=== PATIENT | female | born 1990 | race Caucasian/White ===

== ENCOUNTER 2016-04-16 17:20 | Outpatient (CLI) | payer SELFPAY ==
[~2016-04-16] VITALS: Ht 157.5 cm; Wt 60.0 kg
[~2016-04-16 17:20] MED LIST: FERR27TA; PREN1TAB49
[2016-04-16 17:27] VITALS: Ht 157.5 cm; Wt 60.0 kg
[2016-04-16 17:28] VITALS: BP 111/68; PULSE 93; RESP 16
--- NOTE | 2016-04-16 18:06 | RADRPT ---
PROCEDURE: US OB CLINICAL INDICATION: r/o iugr TECHNIQUE: Multiple sonographic images of the pelvis were obtained. The images were reviewed on a PACS workstation. COMPARISON: None FINDINGS: The cervix is not well visualized. There is a single viable intrauterine gestation. Cardiac activity is present with 154 beats per minute. There is a vertex presentation. The placenta is anterior. There is no evidence for an abruption or placenta previa. There is a subjectively normal amount of amniotic fluid. Measurements were made in order to determine age. The results are as follows (cm): BPD =8.33 HC =30.00 AC =28.57 FL =6.25 Estimated gestational age by ultrasound of approximately 33 weeks, 0 days. The estimated date of delivery by ultrasound is 06/04/2016. Reported gestational age by LMP of approximately 32 weeks, 1 day. The reported date of delivery by LMP is 06/10/2016. EFW = 2024 grams (56th percentile) IMPRESSION: Single viable intrauterine gestation of approximately 33 weeks, 0 days . The estimated date of delivery is 06/04/2016 . Dating by ultrasound is within 6 days of dating by LMP. Estimated weight in the 56th percentile. RPTAT: EE Physician Angélica Date Time Electronically viewed and signed by Physician Angélica on 04/16/2016 18:06 /
--- NOTE | 2016-04-16 18:14 | RADRPT ---
PROCEDURE: US OB biophysical profile. CLINICAL INDICATION: evaluation, rule out intrauterine growth retardation TECHNIQUE: Multiple sonographic images of the pelvis were obtained. The images were reviewed on a PACS workstation. COMPARISON: No prior studies are available for comparison. FINDINGS: There is a single viable intrauterine gestation. Cardiac activity is present with 57 beats per fermin te. There is a vertex presentation. The placenta is anterior. There is no evidence of placental abruption. There is a normal amount of amniotic fluid with an MAU = 12.5 cm. Biophysical profile: movement 2/2 tone 2/2. breathing 2/2 MAU 2/2 Total 10/28 RPTAT: AA . IMPRESSION: Normal biophysical profile. Physician Angélica Date Time Electronically viewed and signed by Physician Angélica on 04/16/2016 18:14 /
--- NOTE | 2016-06-16 13:16 | QN ---
Documentation Comment 33 weeks suspected IUGR patient underwent an ultrasound and biophysical evaluate biophysical patient discharged home to the care of the clinic recommended to repeat ultrasound in 2 week follow-up for IUGR. ARMINDA CLIFTON MD Jun 16, 2016 13:16
== END 2016-04-16 18:59 | disposition home or self-care (01) ==
LOC: L-D 17:20 → OBT 17:20
PROVIDERS: ATTEND Obstetrics & Gynecology
DX: O36.5930 Maternal care for other known or suspected poor fetal growth, third trimester, not applicable or unspecified (principal); Z3A.33 33 weeks gestation of pregnancy
CPT/HCPCS: 76815; 76818; G0463

== ENCOUNTER 2016-04-20 14:12 | Outpatient (CLI) | payer SELFPAY ==
--- NOTE | 2016-04-16 20:00 | QN ---
Documentation Comment 25 years old with IUP at 32 weeks and 3/7 days with care at [facility] was sent for NST and BPP due to concern for IUGR. she was told that she measures about 27 weeks. Denies any vaginal bleeding, uterine contractions or leaking of fluid or decreased movement. Patient denies any complaints. Physical examination: GA: NAD, A&O Abdomen: Soft, nontender nondistended, gravid. NST: Category 1 tracing. No contractions on the monitor seen. Extremities: No calf tenderness no click no edema. EGA: By ultrasound 33 weeks. No evidence of previa no evidence of abruption EFW: 56 percentile BPP: 10/28. MAU: Within normal limits. 12.5 cm PROCEDURE: US OB CLINICAL INDICATION: r/o iugr TECHNIQUE: Multiple sonographic images of the pelvis were obtained. The images were reviewed on a PACS workstation. COMPARISON: None FINDINGS: The cervix is not well visualized. There is a single viable intrauterine gestation. Cardiac activity is present with 154 beats per minute. There is a vertex presentation. The placenta is anterior. There is no evidence for an abruption or placenta previa. There is a subjectively normal amount of amniotic fluid. Measurements were made in order to determine age. The results are as follows (cm): BPD = 8.33 HC = 30.00 AC = 28.57 FL = 6.25 Estimated gestational age by ultrasound of approximately 33 weeks, 0 days. The estimated date of delivery by ultrasound is 06/04/2016. Reported gestational age by LMP of approximately 32 weeks, 1 day. The reported date of delivery by LMP is 06/10/2016. EFW = 2024 grams (56th percentile) IMPRESSION: Single viable intrauterine gestation of approximately 33 weeks, 0 days . The estimated date of delivery is 06/04/2016 . Dating by ultrasound is within 6 days of dating by LMP. Estimated weight in the 56th percentile. Assessment: 25-year-old with IUP at 32 weeks and 3 days by her EDC which is currently consistent with ultrasound today at this facility. EGA : 56 percentile. EFW: 2024 g. testing both reassuring. No evidence of rupture of membranes or labor. Ultrasound finding discussed with the patient in detail. Patient was recommended to have testing twice a week until she have follow-up with her own OB clinic. Patient reports history of SGA in her prior . DC home. Strict labor precautions and kick count discussed with the patient. Rt triage on Thursday for NST BPP. To keep her follow-up appointment next week with no systolic clinic. JOVAN NUNES MD Apr 16, 2016 20:00
[~2016-04-20] VITALS: Ht 157.5 cm; Wt 61.0 kg
[2016-04-20 14:37] VITALS: Ht 157.5 cm; Wt 61.0 kg
[2016-04-20 14:38] VITALS: BP 100/60; PULSE 104; RESP 20
[2016-04-20 14:59] LABS: ADD UMIC YES; URINE BILIRUBIN (Dip) NEGATIVE (NEGATIVE); URINE BLOOD (Dip) NEGATIVE (NEGATIVE); URINE COLOR LT. YELLOW (YELLOW); URINE GLUCOSE (Dip) NEGATIVE (NEGATIVE); URINE KETONES (Dip) TRACE (NEGATIVE); URINE LEUKOCYTE ESTERASE (Dip) 2+ (NEGATIVE); URINE NITRITE (Dip) NEGATIVE (NEGATIVE); URINE TOTAL PROTEIN (Dip) NEGATIVE (NEGATIVE); URINE UROBILINOGEN (Dip) 0.2 E.U./dL (0.1-1.0)
[2016-04-20] MEDS ORDERED: TERBUTALINE 1 ML ONE (15:20)
[2016-04-20] MEDS ORDERED: LACTATED RINGER'S 1,000 ML IV SCH (15:30)
[2016-04-20] MEDS ORDERED: TERBUTALINE 1 MG/ML INJ SC ONE (15:30)
[2016-04-20] MEDS ORDERED: BETAMET NA PHOS/AC(6 MG/ML) 5ML INJ IM ONE (15:30)
[2016-04-20 15:46] LABS: BACTERIA,URINE MANY; SQUAMOUS EPITHELIAL CELL,UR MANY; URINE RBCS 0-2 /HPF (0)
--- NOTE | 2016-04-20 15:51 | RADRPT ---
PROCEDURE: US OB biophysical profile. CLINICAL INDICATION: evaluation TECHNIQUE: Multiple sonographic images of the pelvis were obtained. The images were reviewed on a PACS workstation. COMPARISON: Obstetrical ultrasound from 04/16/2016 FINDINGS: The cervix is closed and measures 2.9 cm in length. There is a single viable intrauterine gestation. Cardiac activity is present with 136 beats per min gracie. There is a vertex presentation. The placenta is anterior. There is no evidence of placental abruption. There is a normal amount of amniotic fluid with an MAU = 13.2 cm. Biophysical profile: movement 2/2 tone 2/2. breathing 2/2 MAU 2/2 Total 10/28 RPTAT: AA . IMPRESSION: Normal biophysical profile. Normal MAU. The cervix is closed and measures 2.9 cm in length. Physician Angélica Date Time Electronically viewed and signed by Physician Angélica on 04/20/2016 15:50 /
[2016-04-20] MEDS ORDERED: CEFAZOLIN 2 GM/50 ML (PMX) 50 ML IVPB ONE ×2 (16:00→16:04)
[2016-04-20] MEDS ORDERED: ACETAMINOPHEN 1000MG/100ML IV 100 ML IVPB ONE (18:00)
[2016-04-20] MEDS ORDERED: BUTORPHANOL 2 MG INJ IV ONE (18:30)
[2016-04-20] MEDS ORDERED: BUTORPHANOL 2 MG INJ ONE (18:32)
--- NOTE | 2016-04-20 22:18 | TRIAGE ---
OB Triage Datetime Report Generated by CPN: 04/20/2016 22:18 Datetime: 04/20/2016 18:43 DTR's/Clonus: DTRs 2+ Headache: Denies Blurred Vision: No Nausea/Vomiting: Denies RUQ Epigastric Pain: Denies Facial Edema: None Labor Evaluation Frequency: none at this time Monitor Mode: External Pattern: Normal: <= 5 Contractions in 10 Minutes Resting Tone [place]: Relaxed Heart Rate FHR Baseline Rate: 155 Monitor Mode: External US FHR Baseline Changes: No Baseline Change Variability: Moderate 6-25 bpm Accelerations: 15X15 Decelerations: None Category: Category I Pain Assessment Pain Scale: 0 Pain Presence: None/Denies Pain Goal: 3 Pain Assessment Comments: pt sleeping no complaints offerred Datetime: 04/20/2016 18:05 Maternal Assessment Level of Consciousness: Fully Conscious DTR's/Clonus: DTRs 2+ Headache: Denies Blurred Vision: No Nausea/Vomiting: Denies RUQ Epigastric Pain: Denies Facial Edema: None Labor Evaluation Frequency: 4-8 Monitor Mode: External Duration (sec)2399: 60 Quality: Moderate Pattern: Normal: <= 5 Contractions in 10 Minutes Resting Tone [place]: Relaxed Pain Assessment Pain Scale: 6 Pain Presence: Intermittent Pain Type: Contraction Pain Location: Abdomen Pain Goal: 6 Datetime: 04/20/2016 18:04 Heart Rate FHR Baseline Rate: 170 Monitor Mode: External US FHR Baseline Changes: Tachycardia Variability: Moderate 6-25 bpm Accelerations: 15X15 Decelerations: None Category: Category I Datetime: 04/20/2016 17:14 Maternal Assessment Level of Consciousness: Fully Conscious DTR's/Clonus: DTRs 2+ Headache: Denies Blurred Vision: No Nausea/Vomiting: Denies RUQ Epigastric Pain: Denies Facial Edema: None Labor Evaluation Frequency: irreg Monitor Mode: External Duration (sec)2399: 50-60 Quality: Moderate Pattern: Normal: <= 5 Contractions in 10 Minutes Resting Tone [place]: Relaxed Heart Rate FHR Baseline Rate: 160 Monitor Mode: External US FHR Baseline Changes: No Baseline Change Variability: Moderate 6-25 bpm Accelerations: 15X15 Decelerations: None Category: Category I Pain Assessment Pain Scale: 6 Pain Presence: Intermittent Pain Type: Contraction Pain Location: Abdomen Pain Goal: 6 Vaginal Exam Membrane Status: Intact Datetime: 04/20/2016 16:15 Maternal Assessment Level of Consciousness: Fully Conscious DTR's/Clonus: DTRs 2+ Headache: Denies Blurred Vision: No Nausea/Vomiting: Denies RUQ Epigastric Pain: Denies Facial Edema: None Labor Evaluation Frequency: irreg Monitor Mode: External Duration (sec)2399: 60 Quality: Moderate Pattern: Normal: <= 5 Contractions in 10 Minutes Resting Tone [place]: Relaxed Heart Rate FHR Baseline Rate: 156 Monitor Mode: External US FHR Baseline Changes: No Baseline Change Variability: Moderate 6-25 bpm Accelerations: 15X15 Decelerations: None Category: Category I Pain Assessment Pain Scale: 6 Pain Presence: Intermittent Pain Type: Contraction Pain Location: Abdomen Pain Goal: 6 Vaginal Exam Membrane Status: Intact Datetime: 04/20/2016 15:08 Labor Evaluation Frequency: 3-4 Monitor Mode: External Duration (sec)2399: 60 Quality: Moderate Pattern: Normal: <= 5 Contractions in 10 Minutes Resting Tone [place]: Relaxed Heart Rate FHR Baseline Rate: 150 Monitor Mode: External US FHR Baseline Changes: No Baseline Change Variability: Moderate 6-25 bpm Accelerations: 15X15 Decelerations: None Category: Category I Pain Assessment Pain Scale: 7 Pain Presence: Intermittent Pain Type: Contraction Pain Location: Abdomen Pain Goal: 7 Vaginal Exam Membrane Status: Intact Datetime: 04/20/2016 14:31 Time of Arrival: 04/20/2016 14:05 EGA: 33.0 Arrived By: Ambulatory Arrived From: Home Chief Complaint: F/U IUGR Movement: Present Contractions: Denies/Absent Rupture of Membranes: Denies Vaginal Bleeding: None Vaginal Discharge: Denies Recent Sexual Intercouse: Denies Abdominal Trauma: Not Applicable Patient Complaints: Other Time Provider Notified: 04/20/2016 14:32 Provider Notified: DR CLIFTON Initial Plan: EFM,NST/BPP Labor Evaluation Frequency: 1-2 Monitor Mode: Internal Duration (sec)2399: 20-30 Quality: Mild Pattern: Normal: <= 5 Contractions in 10 Minutes Resting Tone [place]: Relaxed Datetime: 04/20/2016 14:30 Maternal Assessment Level of Consciousness: Fully Conscious Maternal Assessment Level of Consciousness: Fully Conscious DTR's/Clonus: DTRs 2+ DTR's/Clonus: DTRs 2+; No Clonus Headache: Denies Headache: Denies Blurred Vision: No Blurred Vision: No Respiratory Effort: Unlabored; Regular Rhythm; Equal Expansion Breath Sounds, Left: Clear and Equal Breath Sounds, Right: Clear and Equal Nausea/Vomiting: Denies RUQ Epigastric Pain: Denies RUQ Epigastric Pain: Denies Facial Edema: None Facial Edema: None Temperature Route: Axillary Fall Risk Assessment History of Falling: (0) No Secondary Diagnosis: (0) No Ambulatory Aid: (0) Bedrest/Nurse Assist IV Therapy: (0) No Gait: (0) Normal/Bedrest/Immobile Mental Status: (0) Oriented to Own Ability Fall Score: 0 Fall Risk Score Definition: No Risk: No action required Pattern: Normal: <= 5 Contractions in 10 Minutes Heart Rate FHR Baseline Rate: 150 Monitor Mode: External US FHR Baseline Changes: No Baseline Change Variability: Moderate 6-25 bpm Decelerations: None Category: Category I Pain Assessment Pain Scale: 7 Pain Presence: Constant Pain Type: Pressure Pain Location: Abdomen Pain Goal: 7 Vaginal Exam Membrane Status: Intact Datetime: 04/16/2016 18:33 Pattern: Normal: <= 5 Contractions in 10 Minutes Resting Tone [place]: Relaxed Contraction Comments: no uc Heart Rate FHR Baseline Rate: 135 Monitor Mode: External US Variability: Moderate 6-25 bpm Accelerations: 15X15 Decelerations: None Category: Category I Pain Presence: None/Denies Pain Type: N/A Datetime: 04/16/2016 17:47 Time of Arrival: 04/16/2016 17:17 EGA: 32.3 Arrived By: Ambulatory Arrived From: [facility] Chief Complaint: Pt. came to hospital from md office for r/o iugr due to fundus height 27cm at 32. 3wks GA, deny srom, deny vag. bleeding Movement: Present Contractions: Denies/Absent Rupture of Membranes: Denies Vaginal Bleeding: None Vaginal Discharge: Denies Recent Sexual Intercouse: Denies Abdominal Trauma: Not Applicable Patient Complaints: None Time Provider Notified: 04/16/2016 17:35 Provider Notified: Initial Plan: nst, u/s for efw and bpp Datetime: 04/16/2016 17:31 Assessment Type: Triage Maternal Assessment Level of Consciousness: Fully Conscious DTR's/Clonus: DTRs 2+ Headache: Denies Blurred Vision: Yes Respiratory Effort: Unlabored; Regular Rhythm; Equal Expansion Breath Sounds, Left: Clear and Equal Breath Sounds, Right: Clear and Equal Nausea/Vomiting: Denies RUQ Epigastric Pain: Denies Lower Extremities Edema: None Degree: None Upper Extremities Edema: None Degree: None Facial Edema: None Fall Risk Assessment History of Falling: (0) No Secondary Diagnosis: (0) No Ambulatory Aid: (0) Bedrest/Nurse Assist IV Therapy: (0) No Gait: (0) Normal/Bedrest/Immobile Mental Status: (0) Oriented to Own Ability Fall Score: 0 Fall Risk Score Definition: No Risk: No action required
--- NOTE | 2016-04-20 22:29 | TRIAGE ---
OB Triage Datetime Report Generated by CPN: 04/20/2016 22:29 Datetime: 04/20/2016 21:46 Stage of : OB Triage Frequency: occasional along with uterine irriitiability. Monitor Mode: External Duration (sec)2399: 50-60 Quality: Mild Pattern: Normal: <= 5 Contractions in 10 Minutes Resting Tone [place]: Relaxed FHR Baseline Rate: 115 Monitor Mode: External US Variability: Moderate 6-25 bpm Accelerations: 15X15 Decelerations: None Category: Category I Datetime: 04/20/2016 21:00 Stage of : OB Triage Frequency: 0 Monitor Mode: External Duration (sec)2399: 0 Pattern: Normal: <= 5 Contractions in 10 Minutes Resting Tone [place]: Relaxed Contraction Comments: uterine irritiability noted. pt denies UC's or cramping, FHR Baseline Rate: 115 Monitor Mode: External US Variability: Moderate 6-25 bpm Accelerations: 15X15 Decelerations: None Category: Category I Pain Scale: 4 Pain Presence: Intermittent Pain Type: Ache Pain Location: Abdomen Pain Goal: 1 Pain Relief Measures: Pain Medication Given; Comfort Measures Datetime: 04/20/2016 20:00 Stage of : OB Triage Frequency: x1 Monitor Mode: External Duration (sec)2399: 50 Quality: Mild Pattern: Normal: <= 5 Contractions in 10 Minutes Resting Tone [place]: Relaxed FHR Baseline Rate: 115 Monitor Mode: External US Variability: Moderate 6-25 bpm Accelerations: 15X15 Decelerations: None Category: Category I Datetime: 04/20/2016 14:31 EGA: 33.0
--- NOTE | 2016-04-20 22:48 | QN ---
Documentation Comment Doris CUNNINGHAM pt/Dr Faustin 25 y.o. with an IUP at 33 weeks. Supposedly here for F/U for IUGR as was seen here a few days ago as was measuring S<D on clinical exam but was S=D on US so no evidence of IUGR whatsoever. As pt was here she also describes a sudden onset of mid lower pelvic pain about 2PM that is only felt when she moves. Pt was here for a good 6 hours before she gave a h/o slipping when she got out of her car, catching herself so she didn't fall and then the pain started after that. No dysuria or frequency. No VB or leaking. PMHx: none. PSHx: none. POBHx: x 1. NKDA. WG=533/60. T= 98.2 BPP 8/8. MAU 13.2 cm. VTX. Cervix 2.9 cm long and closed. NST: baseline 140 bpm with accels to 180 bpm. No decels. UC's initially q 2-3 minutes. After terbulatine x 2 and IV hydration, only occasional UC's that the pt does not feel. Pt received beta methasone x 1. She recieved IV Tylenol one dose and Stadol 2 mg x 1. She received Ancef 2 grams IVPB as the U/A appeared like a contaminated specimen but there was not an obvious UTI. After all of the above, the pt then told the story about the fall and her pain at the midline on her symphysis pubis by history and palpation is consistent with that Offered the pt the option of being admitted for pain management and bedrest or she could go home to bedrest for the next 5 days with a note to stay off work and a Rx for Montgomery #10. Ultimately the pt decided to go home. A: IUP at 33 weeks. Symphysis pubis ligament pain. P: D/C home. Rx Montgomery 5/325 #10 given. Note for work to stay home through 04/25. SHELDON DANIELS MD Apr 20, 2016 22:48
== END 2016-04-20 22:00 | disposition home or self-care (01) ==
LOC: OBT 14:12 → L-D 14:12 → OBT 22:00
PROVIDERS: ATTEND Obstetrics & Gynecology
DX: O26.893 Other specified pregnancy related conditions, third trimester (principal); R10.2 Pelvic and perineal pain; O36.5930 Maternal care for other known or suspected poor fetal growth, third trimester, not applicable or unspecified; Z3A.33 33 weeks gestation of pregnancy
CPT/HCPCS: 36415; 76817; 76818; 81001; 87086; 96360; 96361; 96366; 96372; 96375; G0463; J0131; J0690; J0702; J3105; J7120; 81003

== ENCOUNTER 2016-04-21 16:46 | Outpatient (CLI) | payer SELFPAY ==
[~2016-04-21] VITALS: Ht 157.5 cm; Wt 60.9 kg
[2016-04-21 17:03] VITALS: BP 111/59; PULSE 86; RESP 18; Ht 157.5 cm; Wt 60.9 kg
[2016-04-21] MEDS ORDERED: BETAMET NA PHOS/AC(6 MG/ML) 5ML INJ IM SCH (17:30)
--- NOTE | 2016-04-21 21:09 | PN ---
DATE: The patient returns today for a repeat betamethasone. Has no complaints. The patient received beta methasone and follow with her [employer] within 1 to 2 days. Dictated By: MONICA HOPE MD /NTS Conf#: [id number] DID#: [id number]
== END 2016-04-21 18:14 | disposition home or self-care (01) ==
LOC: OBT 16:46 → L-D 16:47 → OBT 18:14
DX: Z34.90 Encounter for supervision of normal pregnancy, unspecified, unspecified trimester (principal); Z76.0 Encounter for issue of repeat prescription
CPT/HCPCS: J0702

== ENCOUNTER 2016-04-27 16:58 | Outpatient (CLI) | payer MEDICAID ==
[~2016-04-27] VITALS: Ht 157.5 cm; Wt 62.1 kg
[2016-04-27 17:08] VITALS: Ht 157.5 cm; Wt 62.1 kg
[2016-04-27 17:10] VITALS: BP 119/76; PULSE 19; RESP 19
--- NOTE | 2016-04-27 18:06 | RADRPT ---
PROCEDURE: OB ultrasound for biophysical profile and MAU. CLINICAL INDICATION: IUGR. Biophysical profile. . TECHNIQUE: Multiple sonographic images of the pelvis were obtained. Transabdominal view of the gr avid uterus are available for review. The images were reviewed on a PACS workstation. COMPARISON: Biophysical profile ultrasound 04/20/2016. FINDINGS: breathing movement = 2/2 tone = 2/2 motion = 2/2 MAU = 2/2 MAU = 10.0 cm Single live intrauterine with cardiac activity of 163 beats per minute. IMPRESSION: 1. Single viable intrauterine gestation. 2. Biophysical profile = 8/8. 3. MAU = 10.0 cm. RPTAT: HJAH .Raegan Olsen MD, Date Time Electronically viewed and signed by .Raegan Olsen MD, on 04/27/2016 18:05 .H/
--- NOTE | 2016-04-27 18:21 | TRIAGE ---
OB Triage Datetime Report Generated by CPN: 04/27/2016 18:21 Datetime: 04/27/2016 17:53 Stage of : OB Triage Maternal Assessment Level of Consciousness: Fully Conscious DTR's/Clonus: DTRs 1+ Headache: Denies Breath Sounds, Left: Clear and Equal Breath Sounds, Right: Clear and Equal Nausea/Vomiting: Denies RUQ Epigastric Pain: Denies Labor Evaluation Frequency: NONE Monitor Mode: External Resting Tone [place]: Relaxed Heart Rate FHR Baseline Rate: 150 Monitor Mode: External US Variability: Moderate 6-25 bpm Accelerations: 15X15 Decelerations: None Category: Category I Pain Assessment Pain Scale: 3 Pain Presence: Constant Pain Type: Dull Pain Location: Abdomen Pain Goal: 3 Vaginal Exam Membrane Status: Intact Datetime: 04/27/2016 17:21 Maternal Assessment Level of Consciousness: Fully Conscious DTR's/Clonus: DTRs 1+ Headache: Denies Blurred Vision: Yes Respiratory Effort: Unlabored Breath Sounds, Left: Clear and Equal Breath Sounds, Right: Clear and Equal Nausea/Vomiting: Denies RUQ Epigastric Pain: Denies Facial Edema: None Labor Evaluation Frequency: NONE Monitor Mode: External Resting Tone [place]: Relaxed Heart Rate FHR Baseline Rate: 150 Monitor Mode: External US Variability: Moderate 6-25 bpm Accelerations: 15X15 Decelerations: None Category: Category I Pain Assessment Pain Scale: 3 Pain Presence: Constant Pain Type: Dull Pain Location: Abdomen Pain Goal: 3 Pain Assessment Comments: LOWER ABDOMINAL PAIN AROUND HER ABDOMEN Vaginal Exam Membrane Status: Intact Datetime: 04/27/2016 17:06 Assessment Type: Triage Maternal Assessment Level of Consciousness: Fully Conscious DTR's/Clonus: DTRs 2+; No Clonus Headache: Denies Blurred Vision: No Respiratory Effort: Unlabored; Regular Rhythm; Equal Expansion Breath Sounds, Left: Clear and Equal Breath Sounds, Right: Clear and Equal Nausea/Vomiting: Denies RUQ Epigastric Pain: Denies Lower Extremities Edema: None Degree: None Upper Extremities Edema: None Degree: None Facial Edema: None Fall Risk Assessment History of Falling: (0) No Secondary Diagnosis: (0) No Ambulatory Aid: (0) Bedrest/Nurse Assist IV Therapy: (0) No Gait: (0) Normal/Bedrest/Immobile Mental Status: (0) Oriented to Own Ability Fall Score: 0 Fall Risk Score Definition: No Risk: No action required Datetime: 04/27/2016 17:02 Time of Arrival: 04/27/2016 17:02 EGA: 34.0 Arrived By: Ambulatory Arrived From: Home Chief Complaint: PT CAME IN FOR NST ANDBPP F/U FOR IUGR Movement: Present Contractions: Denies/Absent Rupture of Membranes: Denies Vaginal Discharge: Denies Recent Sexual Intercouse: Denies Abdominal Trauma: Not Applicable Patient Complaints: Other Additional Patient Complaints: NONE Time Provider Notified: 04/27/2016 17:59 Provider Notified: [facility] Initial Plan: NST AND BPP Datetime: 04/21/2016 17:24 Assessment Type: Admission Assessment Maternal Assessment Level of Consciousness: Fully Conscious DTR's/Clonus: DTRs 2+; No Clonus Headache: Denies Blurred Vision: No Respiratory Effort: Unlabored; Regular Rhythm; Equal Expansion Breath Sounds, Left: Clear and Equal Breath Sounds, Right: Clear and Equal Nausea/Vomiting: Denies RUQ Epigastric Pain: Denies Lower Extremities Edema: None Degree: None Upper Extremities Edema: None Degree: None Facial Edema: None Fall Risk Assessment History of Falling: (0) No Secondary Diagnosis: (0) No Ambulatory Aid: (0) Bedrest/Nurse Assist IV Therapy: (0) No Gait: (0) Normal/Bedrest/Immobile Mental Status: (0) Oriented to Own Ability Fall Score: 0 Fall Risk Score Definition: No Risk: No action required Datetime: 04/21/2016 17:21 Time of Arrival: 04/21/2016 16:39 EGA: 33.1 Arrived By: Ambulatory Arrived From: Home Chief Complaint: PT CAME IN FOR HER 2ND DOSE OF BETAMETHASONE Movement: Present Contractions: Denies/Absent Rupture of Membranes: Denies Vaginal Bleeding: None Vaginal Discharge: Denies Recent Sexual Intercouse: Denies Abdominal Trauma: Not Applicable Patient Complaints: Other Time Provider Notified: 04/21/2016 17:13 Provider Notified: DR HOPE Initial Plan: NST Datetime: 04/21/2016 17:19 Labor Evaluation Frequency: OCCASIONAL Monitor Mode: External Duration (sec)8959: 40-70 Quality: Mild Pattern: Normal: <= 5 Contractions in 10 Minutes Resting Tone [place]: Relaxed Heart Rate FHR Baseline Rate: 145 Monitor Mode: External US Variability: Moderate 6-25 bpm Accelerations: 15X15 Decelerations: None Category: Category I Datetime: 04/20/2016 14:31 EGA: 33.0 Datetime: 04/20/2016 14:30 Fall Score: 0 Fall Risk Score Definition: No Risk: No action required Datetime: 04/16/2016 17:47 EGA: 32.3 Datetime: 04/16/2016 17:31 Fall Score: 0 Fall Risk Score Definition: No Risk: No action required
--- NOTE | 2016-04-27 18:30 | PN ---
Date/Time of Note Date/Time of Note DATE: 04/27/16 TIME: 18:19 Assessment/Plan VTE Prophylaxis VTE Prophylaxis Intervention: ambulation, other VTE Confirmed-Overlap Tx Rcvd Pt Rcvd Overlap Therapy: No Lines/Catheters IV Catheter Type (from Nrsg): Central line still needed: No Urinary Cath still in place: No Assessment/Plan Chief Complaint/Hosp Course IUGR Problems: Assessment/Plan Follow up in Perinatology Subjective 24 Hr Interval Summary Free Text/Dictation April 27, 2016 OB, triage consult This patient is a 25 years old 2 para 1 living 1 with EDC of June 10 which makes her 34 weeks now . She has been diagnosed as IUGR (intrauterine growth retardation ) to be monitored . On examination she is a well-developed well-nourished lady. No complaint of a contractions. Slight lower abdominal pain mostly at the suprapubic area, other than that no other complain . heart tone is normal with good variability and acceleration no deceleration . The ultrasound was done ; biophysical profile came back 8/8 MAU 10 cm The finding were discussed with the patient . She will be discharged home, and we will continue doing the kick count. Will call the perinatology to make an anointment for another ultrasound and biophysical profile Constitutional: improved, no complaints Eyes: no complaints ENT: no complaints Respiratory: no complaints Cardiovascular: no complaints Gastrointestinal: no complaints Genitourinary: no complaints ( slight suprapubic pain especially when she is walking) Musculoskeletal: no complaints Endocrine: no complaints Lymphatic: no complaints Psychological: nl mood/affect, no complaints Immunologic: no complaints Admit Date/Time Admit Date/Time Exam/Review of Systems Vital Signs Vitals Vital Signs Date Time Temp Pulse Resp B/P Pulse Ox O2 Delivery O2 Flow Rate FiO2 04/27/16 17:10 98.3 19 19 119/76 99 Room Air Exam Constitutional: alert NANNETTE AGUIRRE MD Apr 27, 2016 18:30
== END 2016-04-27 18:08 | disposition home or self-care (01) ==
LOC: OBT 16:58 → L-D 16:59 → OBT 18:08
PROVIDERS: ATTEND Obstetrics & Gynecology
DX: O47.03 False labor before 37 completed weeks of gestation, third trimester (principal); Z3A.33 33 weeks gestation of pregnancy
CPT/HCPCS: 76818; Z7500; G0463

== ENCOUNTER 2016-06-02 01:17 | Outpatient (CLI) | payer MEDICAID ==
[~2016-06-02] VITALS: Ht 157.5 cm; Wt 69.6 kg
[2016-06-02 01:28] VITALS: Ht 157.5 cm; Wt 69.6 kg
[2016-06-02 01:39] VITALS: BP 115/79
--- NOTE | 2016-06-02 04:35 | QN ---
Documentation Comment Laborist ER panel pt 25 y.o. with an IUP at 39w1d c/o labor. No leaking, bleeding. + FM. Pt is supposed to deliver at [facility] as she is a [place] pt but states she wants to deliver at [facility] as this is where she had her first baby. POBHx: x 1 after a 15 hour induction for IUGR. PMHx: None. PSHx: None. NKDA. 115/79 T=98.0 NST baseline 130-140 bpm with accels to 160 bpm. No decels. UC's q 8-10 minutes. CX: 70%/3/-2 and no change after ambulating x 1 hour. A: IUP at 39w 1d. Early labor. P: D/C home with instructions on when to return i.e. when more active labor. SHEDLON DANIELS MD Jun 02, 2016 04:35
--- NOTE | 2016-06-02 04:40 | TRIAGE ---
OB Triage Datetime Report Generated by CPN: 06/02/2016 04:40 Datetime: 06/02/2016 04:31 Stage of : OB Triage Datetime: 06/02/2016 04:20 Labor Evaluation Frequency: 6-8 Monitor Mode: External Duration (sec)2399: 40-80 Pattern: Normal: <= 5 Contractions in 10 Minutes Heart Rate FHR Baseline Rate: 135 Monitor Mode: External US FHR Baseline Changes: No Baseline Change Variability: Moderate 6-25 bpm Accelerations: 15X15 Decelerations: None Category: Category I Datetime: 06/02/2016 03:29 Labor Evaluation Frequency: 6-8 Monitor Mode: External Duration (sec)2399: 40-70 Pattern: Normal: <= 5 Contractions in 10 Minutes Heart Rate FHR Baseline Rate: 135 Monitor Mode: External US FHR Baseline Changes: No Baseline Change Variability: Moderate 6-25 bpm Accelerations: 15X15 Decelerations: None Category: Category I Datetime: 06/02/2016 03:09 Monitor Mode: Palpation Resting Tone [place]: Relaxed Datetime: 06/02/2016 03:06 Monitor Mode: Palpation Quality: Moderate Pain Assessment Pain Scale: 6 Pain Presence: Intermittent Pain Type: Cramping Pain Location: Abdomen Pain Assessment Comments: PT. STATES PAIN IS UNCHANGED FROM AMBULATION Datetime: 06/02/2016 03:05 Comments: MOVEMENT PALPATED Vaginal Exam Dilatation (cms): 3.0 Effacement (%): 70 Station: -2 Exam By: SONIYA Vaginal Bleeding: None Cervix, Consistency: Soft Cervix, Position: Midposition Presentation 'A': Cephalic Datetime: 06/02/2016 02:00 Labor Evaluation Frequency: X2 Monitor Mode: External Duration (sec)2399: 70-90 Pattern: Normal: <= 5 Contractions in 10 Minutes Heart Rate FHR Baseline Rate: 135 Monitor Mode: External US FHR Baseline Changes: No Baseline Change Variability: Moderate 6-25 bpm Accelerations: 15X15 Decelerations: None Category: Category I Comments: REACTIVE NST Datetime: 06/02/2016 01:30 Stage of : OB Triage Vaginal Exam Dilatation (cms): 3.0 Effacement (%): 70 Station: -2 Exam By: G.[email or web address] Membrane Status: Intact Datetime: 06/02/2016 01:22 Stage of : OB Triage Assessment Type: Triage Maternal Assessment Level of Consciousness: Fully Conscious Headache: Denies Blurred Vision: No Respiratory Effort: Unlabored; Regular Rhythm; Equal Expansion Nausea/Vomiting: Denies RUQ Epigastric Pain: Denies Lower Extremities Edema: None Degree: None Upper Extremities Edema: None Degree: None Facial Edema: None Fall Risk Assessment History of Falling: (0) No Secondary Diagnosis: (0) No Ambulatory Aid: (0) Bedrest/Nurse Assist IV Therapy: (0) No Gait: (0) Normal/Bedrest/Immobile Mental Status: (0) Oriented to Own Ability Fall Score: 0 Fall Risk Score Definition: No Risk: No action required Pain Assessment Pain Scale: 6 Pain Presence: Intermittent Pain Type: Cramping Pain Location: Abdomen Datetime: 06/02/2016 01:20 Time of Arrival: 06/02/2016 01:13 EGA: 39.1 Arrived By: Wheelchair Arrived From: Home Chief Complaint: UC'S X1 WEEK, STRONGER STARTING AT 23:00 Movement: Present Contractions: Occasional Time Contractions Began: 06/01/2016 23:00 Contractions: 8-10 Rupture of Membranes: Denies Vaginal Bleeding: Scant Vaginal Discharge: Denies Recent Sexual Intercouse: Denies Abdominal Trauma: Not Applicable Patient Complaints: Contractions Provider Notified: REICHE Initial Plan: EFM, SVE, CALL OB Datetime: 04/27/2016 17:06 Fall Score: 0 Fall Risk Score Definition: No Risk: No action required Datetime: 04/27/2016 17:02 EGA: 34.0 Datetime: 04/21/2016 17:24 Fall Score: 0 Fall Risk Score Definition: No Risk: No action required Datetime: 04/21/2016 17:21 EGA: 33.1 Datetime: 04/20/2016 14:31 EGA: 33.0 Datetime: 04/20/2016 14:30 Fall Score: 0 Fall Risk Score Definition: No Risk: No action required Datetime: 04/16/2016 17:47 EGA: 32.3 Datetime: 04/16/2016 17:31 Fall Score: 0 Fall Risk Score Definition: No Risk: No action required
== END 2016-06-02 04:31 | disposition home or self-care (01) ==
LOC: OBT 01:17 → L-D 01:18 → OBT 04:31
PROVIDERS: ATTEND Obstetrics & Gynecology
DX: O62.9 Abnormality of forces of labor, unspecified (principal); Z3A.39 39 weeks gestation of pregnancy
CPT/HCPCS: G0463